=== PATIENT | female | born 1990 | race Two or more races ===

== ENCOUNTER 2025-03-21 10:42 | Outpatient (CLI) | payer OTHER | END 2025-03-21 10:51 | disposition home or self-care (01) | LOC: PRENATAL 10:42 | PROVIDERS: ATTEND Obstetrics & Gynecology Maternal & Fetal Medicine | DX: O36.80X0 Pregnancy with inconclusive fetal viability, not applicable or unspecified (principal); Z36.82 Encounter for antenatal screening for nuchal translucency; Z14.8 Genetic carrier of other disease; O09.529 Supervision of elderly multigravida, unspecified trimester; O34.10 Maternal care for benign tumor of corpus uteri, unspecified trimester; Z3A.13 13 weeks gestation of pregnancy ==

== ENCOUNTER 2025-05-16 15:22 | Outpatient (CLI) | payer OTHER | END 2025-05-16 15:23 | disposition home or self-care (01) | LOC: PRENATAL 15:22 | PROVIDERS: ATTEND Obstetrics & Gynecology Maternal & Fetal Medicine | DX: O44.00 Complete placenta previa NOS or without hemorrhage, unspecified trimester (principal); O09.529 Supervision of elderly multigravida, unspecified trimester; O34.10 Maternal care for benign tumor of corpus uteri, unspecified trimester; Z3A.21 21 weeks gestation of pregnancy ==

== ENCOUNTER 2025-08-20 12:21 | Outpatient (CLI) | payer OTHER | END 2025-08-20 12:22 | disposition home or self-care (01) | LOC: PRENATAL 12:21 | PROVIDERS: ATTEND Obstetrics & Gynecology Maternal & Fetal Medicine | DX: O26.843 Uterine size-date discrepancy, third trimester (principal); O36.8130 Decreased fetal movements, third trimester, not applicable or unspecified; O44.03 Complete placenta previa NOS or without hemorrhage, third trimester; O09.523 Supervision of elderly multigravida, third trimester; O34.13 Maternal care for benign tumor of corpus uteri, third trimester; Z3A.36 36 weeks gestation of pregnancy ==